=== PATIENT | female | born 2000 | race Caucasian/White ===

== ENCOUNTER 2019-09-06 19:12 | Emergency (ER) | payer BC ==
--- NOTE | 2019-09-06 19:21 | UC ---
Laceration HPI - HPI Summary HPI Summary: 18 yo female presents for suture removal. She tells me that 7 days ago she was in [place] and was ice skating - fell and hit her head on the ice. Went to the local ER and had 3 sutures placed to her left eyebrow. Has healed well without drainage, bleeding, fevers, or pain. - History Of Current Complaint Stated Complaint: SUTURE REMOVAL Time Seen by Provider: 09/06/19 19:21 Hx Obtained From: Patient Hx Last Menstrual Period: hasn't had yet Laceration Location: Face Mechanism Of Injury: Blunt Trauma Onset/Duration: Sudden Onset - Allergies/Home Medications Allergies/Adverse Reactions: Allergies Allergy/AdvReac Type Severity Reaction Status Date / Time No Known Allergies Allergy Verified 09/06/19 19:30 PMH/Surg Hx/FS Hx/Imm Hx - Additional Past Medical History Additional PMH: None - Surgical History Surgical History: None - Family History Known Family History: Positive: None - Social History Occupation: Student Lives: With Family Alcohol Use: None Substance Use Type: None Smoking Status (MU): Never Smoked Tobacco - Immunization History Most Recent Influenza Vaccination: has not had Vaccination Up to Date: Yes Review of Systems All Other Systems Reviewed And Are Negative: No Constitutional: Positive: Negative Skin: Positive: Other - Sutures left eyebrow Respiratory: Positive: Negative Cardiovascular: Positive: Negative Musculoskeletal: Positive: Negative Neurological: Positive: Negative Psychological: Positive: Negative Physical Exam - Summary Physical Exam Summary: GENERAL: NAD. WDWN. No pain distress. SKIN: LEFT EYEBROW: 2.0cm horizontal linear laceration with three sutures in place. Well healed. Mild scabbing. CHEST: No accessory muscle use. Breathing comfortably and in no distress. CV: Pulses intact. Cap refill <2seconds NEURO: Alert. PSYCH: Age appropriate behavior. Triage Information Reviewed: Yes Vital Signs: Vital Signs: Temp Pulse Resp BP Pulse Ox 99.0 F 66 16 102/57 100 09/06/19 19:26 09/06/19 19:26 09/06/19 19:26 09/06/19 19:26 09/06/19 19:26 Vital Signs Reviewed: Yes Laceration Course/Dx - Course/Dx Course Of Treatment: 3 sutures removed without difficulty. Pt tolerated well. Wound well healed - Diagnosis Provider Diagnosis: Visit for suture removal Discharge ED - Sign-Out/Discharge Documenting (check all that apply): Patient Departure All imaging exams completed and their final reports reviewed: No Studies - Discharge Plan Condition: Stable Disposition: HOME Patient Education Materials: Stitches Rc (ED) Referrals: Honorio Russell MD [Primary Care Provider] - - Billing Disposition and Condition Condition: STABLE Disposition: Home
[2019-09-06 19:30] VITALS: BP 102/57
== END 2019-09-06 19:33 | disposition home or self-care (01) ==
LOC: UCCORT 19:12
DX: S01.112D Laceration without foreign body of left eyelid and periocular area, subsequent encounter (principal); W00.0XXD Fall on same level due to ice and snow, subsequent encounter
CPT/HCPCS: 99201; G0463